=== PATIENT | male | born 1990 | race Caucasian/White ===

== ENCOUNTER 2020-03-12 09:22 | Emergency (ER) | payer OTHER ==
[~2020-03-12] VITALS: Ht 188 cm; Wt 85.7 kg
[2020-03-12 09:35] VITALS: Ht 188 cm; Wt 85.7 kg
[2020-03-12 11:58] VITALS: BP 160/93
== END 2020-03-12 11:58 | disposition left against medical advice (07) ==
LOC: ED 09:22
DX: T50.7X5A Adverse effect of analeptics and opioid receptor antagonists, initial encounter (principal); F11.10 Opioid abuse, uncomplicated; Y92.89 Other specified places as the place of occurrence of the external cause
CPT/HCPCS: J1200